=== PATIENT | female | born 1945 | race American Indian/Alaskan Native ===

== ENCOUNTER 2020-01-06 09:06 | Outpatient (CLI) | payer MEDICARE ==
--- NOTE | 2020-01-06 11:16 | Ultrasound Report ---
LEFT DIGITAL DIAGNOSTIC MAMMOGRAM WITH CAD 01/06/2020 LEFT COMPLETE BREAST ULTRASOUND INDICATION: Bloody nipple discharge for 9 months. TECHNIQUE: Digital left mammographic imaging was performed. Magnification views were obtained. Compl ete ultrasound of all four (4) quadrants was performed. This examination was interpreted with the kaila efit of Computer-Aided Detection (CAD) analysis. COMPARISON: 07/26/2015 bilateral mammogram FINDINGS: Breast Density: The breast is heterogeneously dense, which may obscure small masses. MAMMOGRAPHIC FINDINGS: A prominent retroareolar duct persists on spot magnification views. There are a few punctate calcifications associated with the duct. No distinct mass or architectural distortion identified. ULTRASOUND FINDINGS: Complete sonographic evaluation of all 4 quadrants and retroareolar region was p erformed. Ultrasound of the left breast demonstrated an irregular solid heterogeneous hypoechoic ma ss at 2:30 o'clock 5 cm from the nipple measuring 10 x 9 x 5 mm. Ultrasound also demonstrated promine nt retroareolar duct ectasia at 2:30 o'clock with an intraductal mass measuring 10 x 3 x 3 mm. This d uct correlates with the prominent duct on the mammogram. Additional mild duct ectasia with no intradu ctal mass identified at 1:00 4 cm from the nipple and at 1:00 at the edge of the areola. IMPRESSION: A suspicious 10 mm left breast mass at 2:30 o'clock 5 cm from the nipple and suspicious d uct ectasia with an intraductal mass at 2:30 o'clock retroareolar. Recommend ultrasound-guided needle biopsies at both sites with vacuum assisted biopsy for the intraductal mass. Follow up recommendation: Biopsy BI-RADS Category 4: Suspicious for Malignancy. A "normal" or negative report should not discourage follow up or biopsy of a clinically significant f inding. A written summary of these findings will be mailed to the patient. The patient will be entered into a mammography reporting system which will generate a reminder letter for the patient's next appointmen t at the appropriate interval. According to the [employer], yearly mammograms are recommended starting at age 40 and continuing as long as a woman is in good health. Breast MRI is recommended for women with an adair roximately 20-25% or greater lifetime risk of breast cancer, including women with a strong family his tory of breast or ovarian cancer and women who have been treated for Hodgkin's disease. Signer Name: Cresencio Banegas MD Signed: 01/06/2020 11:12 AM Workstation Name: [id number]
--- NOTE | 2020-01-06 15:41 | Mammography Report ---
DIGITAL DIAGNOSTIC MAMMOGRAM WITH CAD, 01/06/2020 INDICATION: Immediately after 2 site ultrasound-guided needle biopsy. TECHNIQUE: Digital left mammographic imaging was performed. This examination was interpreted with minna malhotra benefit of Computer-aided Detection analysis. COMPARISON: A same-day left diagnostic mammogram and left breast ultrasound. FINDINGS: Breast Density: The breast is heterogeneously dense, which may obscure small masses. Biopsy clips are identified at 2:30 and 3:00 and correlate with 2 biopsy sites. The clips are approxi mately 3.5 cm apart on the CC view. IMPRESSION: Concordant clip placement at 2 sites. Follow up recommendation: No recall. Post biopsy imaging. A "normal" or negative report should not discourage follow up or biopsy of a clinically significant f inding. A written summary of these findings will be mailed to the patient. The patient will be entered into a mammography reporting system which will generate a reminder letter for the patient's next appointmen t at the appropriate interval. According to the [employer], yearly mammograms are recommended starting at age 40 and continuing as long as a woman is in good health. Breast MRI is recommended for women with an appr oximately 20-25% or greater lifetime risk of breast cancer, including women with a strong family hist ory of breast or ovarian cancer and women who have been treated for Hodgkin's disease. Signer Name: Cresencio Banegas MD Signed: 01/06/2020 3:37 PM Workstation Name: [id number]
--- NOTE | 2020-01-06 15:55 | Ultrasound Report ---
ULTRASOUND-GUIDED NEEDLE CORE BIOPSY LEFT BREAST WITH CLIP PLACEMENT AND ULTRASOUND-GUIDED VACUUM-ASS ISTED NEEDLE CORE BIOPSY LEFT BREAST WITH CLIP PLACEMENT CLINICAL: Bloody nipple discharge and 2 lesions identified on a same day ultrasound. FINDINGS: The procedure was explained to the patient and informed consent was obtained. Ultrasound demonstrated the previously identified lesions at 2:30 o'clock retroareolar and at 2:30 o' clock 5 cm from the nipple.. I marked the breast with a felt tip marker and a timeout was called. The skin was prepped with Chloro -Prep and anesthetized with 1% lidocaine sites. Attention was first given to the lesion 5 cm from the nipple. Using ultrasound guidance, 2% lidocaine with epinephrine for deep anesthesia and a 14-gauge Achieve biopsy device, needle core biopsy was pe rformed. 4 cores were obtained and placed in formalin. A hydromark clip was placed at the biopsy site . Hemostasis was achieved with minimal effort and a sterile dressing was applied. Vacuum-assisted needle core biopsy was performed through a tiny dermatotomy at 2:30 o'clock retroareo lar using ultrasound guidance, 2% lidocaine with epinephrine for deep anesthesia and a 13-gauge Mammo tome Elite biopsy device. Multiple cores were obtained and placed in formalin. A hydromark clip was d eployed at the site. The patient tolerated the procedure well and there were no apparent complication s. Hemostasis was achieved with minimal effort and a sterile dressing was applied. A post procedure mammogram demonstrated concordant clip deployment at both sites. She left the depart ment in good condition and was given instructions for wound care and follow-up. IMPRESSION: Uncomplicated ultrasound guided needle core biopsy with clip placement at 2:30 o'clock 5 cm from the nipple and uncomplicated ultrasound-guided vacuum-assisted needle core biopsy at 2:30 o'c lock retroareolar left breast. Signer Name: Cresencio Banegas MD Signed: 01/06/2020 3:51 PM Workstation Name: [id number]
--- NOTE | 2020-01-09 14:15 | Ultrasound Report ---
DIGITAL DIAGNOSTIC MAMMOGRAM WITH CAD, 01/06/2020 INDICATION: Immediately after 2 site ultrasound-guided needle biopsy. TECHNIQUE: Digital left mammographic imaging was performed. This examination was interpreted with the benefit of Computer-aided Detection analysis. COMPARISON: A same-day left diagnostic mammogram and left breast ultrasound. FINDINGS: Breast Density: The breast is heterogeneously dense, which may obscure small masses. Biopsy clips are identified at 2:30 and 3:00 and correlate with 2 biopsy sites. The clips are approxi mately 3.5 cm apart on the CC view. IMPRESSION: Concordant clip placement at 2 sites. Follow up recommendation: No recall. Post biopsy imaging. A "normal" or negative report should not discourage follow up or biopsy of a clinically significant f inding. A written summary of these findings will be mailed to the patient. The patient will be entered into a mammography reporting system which will generate a reminder letter for the patient's next appointmen t at the appropriate interval. According to the [employer], yearly mammograms are recommended starting at age 40 and continuing as long as a woman is in good health. Breast MRI is recommended for women with an adair roximately 20-25% or greater lifetime risk of breast cancer, including women with a strong family his tory of breast or ovarian cancer and women who have been treated for Hodgkin's disease. Signer Name: Cresencio Banegas MD Signed: 01/06/2020 3:30 PM Workstation Name: [id number]
== END 2020-01-06 09:07 | disposition home or self-care (01) ==
LOC: SPVWC 09:06
PROVIDERS: ATTEND Surgery
DX: N64.52 Nipple discharge (principal); D05.12 Intraductal carcinoma in situ of left breast
CPT/HCPCS: 88305; 88341; 88342; 88361

== ENCOUNTER 2020-01-28 10:41 | Outpatient (CLI) | payer MEDICARE ==
--- NOTE | 2020-01-28 15:59 | Magnetic Resonance Report ---
BILATERAL BREAST MR WITHOUT AND WITH GADOLINIUM INDICATION: Newly diagnosed left breast cancer at 2 sites. History of bloody nipple discharge for 8 months. She had ultrasound-guided needle biopsies performed at 2:30 o'clock 5 cm from the nipple and at 2:30 o'clock retroareolar on 01/06/2020. Pathology: DCIS and LCIS at 2:30 o'clock 5 cm from the nip ple and invasive carcinoma NOS at 2:30 o'clock retroareolar. COMPARISONS: 01/06/2020 left breast ultrasound and left post biopsy mammogram TECHNIQUE: Axial 1.0 mm T1 without, axial high-resolution 2.0 mm T2 and axial 1.0 mm dynamic vibrant high-resolution postcontrast T1 fat saturation sequences on a 1.5 Radha magnet. The examination was p erformed with an 8-channel dedicated [place] breast coil. Post-processing with CAD and subtraction was performed on an [employer] workstation. 20 cc of MultiHance was injected without incident for the con trast portion of the exam. Consent was obtained prior to the administration of the contrast. FINDINGS: RIGHT BREAST: Mild background recommend enhancement. No mass or suspicious enhancement. No suspicious lymph nodes. LEFT BREAST: Mild background parenchymal enhancement. Regional clumped non mass enhancement involves the central left breast and measures approximately 8.1 cm AP dimension by 2.2 cm transverse dimension by 4.8 cm craniocaudal caudal dimension. A relatively central hydromark clip is identified at the me dial margin of the non mass enhancement approximately 4.5 cm from the nipple and it correlates with a biopsy site 2 or site B in the path report. A second biopsy clip is identified slightly lateral to t he nipple and approximately 6 cm from the nipple. This clip correlates with a biopsy site 2 or site A in the path report. An irregular minimally enhancing mass is associated with this clip and it measur es 2.4 x 2.1 cm. The original mass at this site measured 10 x 9 x 5 mm by ultrasound. No other mass o r suspicious enhancement. There is prominent T1 hyperintense signal within a duct extends to an orifi ce at the nipple. No suspicious left axillary or left internal mammary lymph nodes. IMPRESSION: 1. Multicentric left breast cancer with regional non mass enhancement of the left breast identified i n the vicinity of the 2 known cancers and measuring 8.1 x 2.2 x 4.8 cm. 2. Negative right breast. 3. No suspicious lymph nodes. BI-RADS Category 6: Known Cancer A normal MRI does not exclude the presence of some forms of breast malignancy as literature reports s uggest that some forms of ductal carcinoma in situ or lobular carcinoma, particularly, may not be det ected on MRI. The sensitivity and specificity of MRI for cancers under 5 mm may be reduced. MRI does not replace the recommendation for annual conventional mammographic evaluation and should be used as an adjunct to mammography and physical examination as necessary. Signer Name: Cresencio Banegas MD Signed: 01/28/2020 3:54 PM Workstation Name: [id number]
== END 2020-01-28 10:42 | disposition home or self-care (01) ==
LOC: SPVIMAG 10:41
PROVIDERS: ATTEND Surgery
DX: C50.912 Malignant neoplasm of unspecified site of left female breast (principal)
CPT/HCPCS: 36415; 82565; 84520; A9577; C8908; 77049

== ENCOUNTER 2020-04-01 09:08 | Observation (INO) | payer MEDICARE ==
[2020-04-01] MEDS: LACTATED RINGERS 1,000 ML IV SCH ×2 (08:45→21:42)
[~2020-04-01 09:08] MED LIST: LACTATED RINGERS 1,000 ML ONE; ceFAZolin/Water 2 GM/20 ML 2 GM/20 ML SYRINGE IV NR
[2020-04-01] MEDS ORDERED: SODIUM CHLORIDE 0.9% 1000 ML 1,000 ML ONE (10:43)
[2020-04-01] MEDS ORDERED: BACITRACIN 50,000 UNIT VIAL ONE (10:44)
[2020-04-01] MEDS ORDERED: METHYLENE BLUE 50 MG/10 ML AMP ONE (10:44)
[2020-04-01] MEDS ORDERED: ceFAZolin 1 GM VIAL ONE ×2 (10:44→16:59)
[2020-04-01] MEDS ORDERED: GENTAMICIN 40 MG/ML VIAL 2 ML ONE (10:45)
[2020-04-01] MEDS ORDERED: SODIUM CHLORIDE P/F VIAL 10 ML 20 ML ONE (10:45)
--- NOTE | 2020-04-01 11:16 | Anesthesia Day of Surgery ---
Anesthesia Day of Surgery - Day of Surgery Patient Examined: Yes Patient H&P Reviewed: Yes Patient is NPO: Yes Cardiac Clearance: Yes
--- NOTE | 2020-04-01 11:18 | Anesthesia Consultation ---
Anesthesia Consult and Med Hx Date of service: 04/01/20 - Airway Anesthetic Teeth Evaluation: Chipped ROM Head & Neck: Adequate Mental/Hyoid Distance: Adequate Mallampati Class: Class II Intubation Access Assessment: Good - Pre-Operative Health Status ASA Pre-Surgery Classification: ASA3 Proposed Anesthetic Plan: General Nerve Block: PEC - Pulmonary Hx Smoking: No Hx Sleep Apnea: Yes - Cardiovascular System Hx Hypertension: Yes (1999) Hx Coronary Artery Disease: No (Cath 2017. +Cardiac clearance. +2FS) Hx Peripheral Vascular Disease: (PT UNSURE) - Central Nervous System Hx Back Pain: Yes (LLE diabetic neuropathy) - Endocrine Hx Renal Disease: Yes (CRI) Hx Non-Insulin Dependent Diabetes: Yes - Hematic Hx Anemia: No - Other Systems Hx Cancer: Yes
[2020-04-01] MEDS ORDERED: ONDANSETRON 4 MG/2 ML INJ IV PRN ×2 (11:19→17:34)
[2020-04-01] MEDS ORDERED: ACETAMINOPHEN 325 MG TAB PO NR (11:19)
[2020-04-01] MEDS ORDERED: HYDROmorphone 1 MG/1 ML INJ IV PRN (11:19)
[2020-04-01] MEDS ORDERED: fentaNYL 100 MCG/2 ML INJ IV NR (11:19)
[2020-04-01] MEDS ORDERED: MAGNESIUM OXIDE 400 MG TAB PO NR (11:19)
[2020-04-01] MEDS ORDERED: BUPIVACAINE-EPINEPHRINE/PF 0.25%-1:200,000 (30 ML) VIAL INFILTRATI ONE (11:24)
[2020-04-01] MEDS ORDERED: CELECOXIB 200 MG CAP ONE (11:27)
[2020-04-01] MEDS ORDERED: ACETAMINOPHEN 325 MG TAB ONE (11:28)
[2020-04-01] MEDS ORDERED: MIDAZOLAM 2 MG/2 ML INJ ONE (11:28)
[2020-04-01] MEDS ORDERED: MAGNESIUM OXIDE 400 MG TAB PO ONE (11:28)
[2020-04-01] MEDS ORDERED: fentaNYL 100 MCG/2 ML INJ ONE ×2 (11:29→12:02)
[2020-04-01] MEDS ORDERED: CELECOXIB 200 MG CAP PO NR (12:00)
[2020-04-01] MEDS ORDERED: MIDAZOLAM 2 MG/2 ML INJ IV NR (12:00)
[2020-04-01] MEDS ORDERED: LIDOCAINE MPF (2%) 20 MG/1 ML VIAL 5 ML ONE (12:01)
[2020-04-01] MEDS ORDERED: ONDANSETRON 4 MG/2 ML INJ ONE (12:01)
[2020-04-01] MEDS ORDERED: ROCURONIUM 50 MG/5 ML INJ IV ONE (12:01)
[2020-04-01] MEDS ORDERED: NEOSTIGMINE 10MG/10 ML INJ MDV ONE ×4 (12:01→17:00)
[2020-04-01] MEDS ORDERED: SUCCINYLCHOLINE CHLORIDE 200 MG/10 ML INJ MDV ONE (12:01)
[2020-04-01] MEDS ORDERED: PHENYLEPHRINE/NS 1,000 MCG/10 ML SYRINGE (OR USE) IV ONE (12:01)
[2020-04-01] MEDS ORDERED: GLYCOPYRROLATE 0.4 MG/2 ML INJ ONE (12:01)
[2020-04-01] MEDS ORDERED: HYDROmorphone 1 MG/1 ML INJ ONE (12:01)
[2020-04-01] MEDS ORDERED: propofoL 200 MG/20 ML VIAL IV ONE (12:02)
[2020-04-01] MEDS ORDERED: SODIUM CHLORIDE 0.9% P/F 10 ML VIAL IV ONE (13:02)
[2020-04-01] MEDS ORDERED: METHYLENE BLUE 50 MG/10 ML AMP IRRIGATION ONE (13:03)
[2020-04-01] MEDS ORDERED: WATER FOR IRRIG STERILE 1,500 ML BOTTLE IR ONE (13:04)
[2020-04-01] MEDS ORDERED: SODIUM CHLORIDE P/F VIAL 10 ML 10 ML ONE (13:50)
[2020-04-01] MEDS ORDERED: ceFAZolin 1 GM VIAL IR ONE (16:20)
[2020-04-01] MEDS ORDERED: GENTAMICIN 40 MG/ML VIAL 2 ML IV ONE (16:21)
[2020-04-01] MEDS ORDERED: BACITRACIN 50,000 UNIT VIAL IR ONE (16:21)
--- NOTE | 2020-04-01 16:51 | Operative Report ---
Operative Report Operative Report: Date of Service: April 01, 2020 Preoperative diagnosis: Left Multicentric breast cancer Postoperative diagnosis: Same Procedure: Left total mastectomy with sentinel lymph node biopsy Surgeon: Antonette Hoskins M.D. Billet Sawyer: Paul Mckay M.D. Anesthesia: General Findings: Left breast 2 clips present within left total mastectomy. 2 sentinel lymph nodes identified and negative for malignancy on frozen section of pathology Complications: None Drains: As per Plastic Surgeon Estimated blood loss: 25 cc Disposition: Case handed over to Plastic Surgeon Dr. Park Indications for operative procedure: 75-year-old lady with radiologic multicentric left breast cancer, IDC and DCIS and LCIS, ER/WA positive, HER2 negative. After discussion of the multicentricity of her cancer, patient wished to proceed with total mastectomy with sentinel lymph node biopsy, possible axillary lymph node dissection, with immediate reconstruction by plastic surgery. She understands the role of possible adjuvant chemotherapy and radiation therapy post mastectomy. She has met with medical oncology as well. She wished to proceed with the above procedure. Procedure in detail: Anesthesia placed left pectoral muscle block prior to going to the operating room. The patient was taken to the operating room and placed supine on the operating table. General anesthesia was administered. The left nipple areola complex was injected with radioisotope and 1.5 cc to 1 cc mix of methylene blue and normal saline, respectively. Bilateral breast and axilla were prepped and draped in the normal sterile operative fashion. Timeout was performed. Attention was first paid to the left axilla. A gamma probe scanned the axilla with area of hotspot identified. A skin crease incision was marked over the axilla overlying the area with the highest gamma probe count. The skin incision was made with a 15 blade knife and dissection taken down to the subcutaneous tissues. The axillary fascia in the axilla was opened and the gamma probe was inserted into the axilla, 2 sentinel lymph nodes were identified with the gamma probe. SLNs were dissected free from surrounding tissue and sent for frozen section to pathology. No further gamma probe counts noted in the axilla. Lymph nodes were sent to pathology with findings negative for malignancy noted on frozen section. All returned as negative. Attention was then turned to the left breast. An elliptical mastectomy incision was marked and made, with incision encompassing the known areas of cancer and biopsy tracts. First began raising of the superior flap to the level of the clavicle superiorly and posteriorly to the pectoralis muscle. Followed by raising of the medial flap to the level of the sternum and posteriorly to the pectoralis muscle. Followed by raising of the lateral flap to the level of the latissimus dorsi muscle and taken down posteriorly. Then proceeded with raising of the inferior flap to the level of the inframammary fold taken posteriorly to the pectoralis muscle. The left breast was removed from the pectoralis muscle without incident. The specimen was appropriately marked with short stitch representing superior and long lateral and sent to radiology for x-ray where the biopsy clips were noted to be present. The specimen was then submitted to pathology. The chest wall was irrigated and dried. Hemostasis was obtained. At this point the procedure was turned over to Plastic Surgeon, Dr. Park, in stable condition for immediate reconstruction. Patient tolerated the procedure well.
[2020-04-01] MEDS ORDERED: LACTATED RINGERS 1,000 ML ONE (17:05)
[2020-04-01] MEDS ORDERED: ACETAMINOPHEN 325 MG TAB PO PRN (17:34)
[2020-04-01] MEDS ORDERED: diphenhydrAMINE 25 MG CAP PO PRN (17:34)
[2020-04-01] MEDS ORDERED: METOCLOPRAMIDE 10 MG TAB PO PRN (17:34)
--- NOTE | 2020-04-01 17:34 | Operative Report ---
Operative Report Operative Report: Plastic Surgery Operative Note Surgeon: Yesika Park MD Demand Manager: None Preoperative Diagnosis: Acquired absence of the left breast and nipple; Malignant neoplasm of the left breast Postoperative Diagnosis: Same Procedure: Right breast reconstruction with tissue overhead crane truck loader placement and FlexHD acellular dermal matrix. Anesthesia: General EBL: Minimal Indications: This patient is a 75 year old AAF who is scheduled for a left mastectomy and desired reconstruction. We discussed her options including autologous tissue transfer and she was interested in the least complex reconstructive route possible. So we planned for tissue overhead crane truck loader placement with the use of acellular dermal matrix. The benefits as well as the risks of the procedure were discussed with the patient, including but not limited to infection, bleeding, hematoma, seroma, wound dehiscence, implant rupture, need for further surgery including planned stages and additional reconstruction. The patient understands and accepts these risks and desires to proceed with surgery. Procedure: After review of pertinent history and physical exam findings the patient was brought into the operating room and placed supine on the OR table. After induction of adequate general anesthesia the entire chest was prepped and draped in the usual sterile surgical fashion. To begin, Dr. Antonette Hoskins performed the right mastectomy and SLN biopsy and this procedure is dictated under a separate operative note. When this was completed, the breast reconstruction was started on the right breast. Using electrocautery we dissected a submuscular pocket behind pectoralis muscle to accommodate the tissue overhead crane truck loader. The pocket was thoroughly irrigated with triple antibiotic solution and we began re-creating the inframammary border using Flex HD perforated contoured, a total size of 9x15cm, SN .[id number] . The inferior aspect of the Flex HD was secured to the chest fascia using 2-0 PDS suture. This was followed by placement of the tissue overhead crane truck loader, [place] Siltex 550cc (SN [id number]), in the submuscular pocket. Following this inferior border of the pectoralis fascia was secured to the superior border of the FlexHD also using 2- 0 PDS suture. 15 Polish Pepe drain was placed in the subcutaneous space and both were secured using 2-0 Nylon suture. Using the magnet finder from the tissue overhead crane truck loader package, the injection port was identified and 300cc of methylene blue-tinged injectable saline was added to the implant. We then began a 3-layered closure using 2-0 Monocryl and 3-0 Monoderm Quill [id number] suture. This was followed by Dermabond glue and then Telfa with tegaderm with the same dressing applied to her axillary incision, followed by bra binder. Patient was then awakened from general anesthesia and transferred to the recovery room instable condition. All sponge, needle and instrument counts were correct at the end of the case.
[2020-04-01] MEDS ORDERED: IBUPROFEN 800 MG TAB PO PRN (17:41)
[2020-04-01] MEDS ORDERED: methOCARBAMOL 1,000 MG in SODIUM CHLORIDE 0.9% 250ML 250 ML IV STA (17:51)
[2020-04-01] MEDS ORDERED: LACTATED RINGERS 1,000 ML IV SCH (18:00)
--- NOTE | 2020-04-01 21:43 | Post Anesthesia Evaluation ---
- Post Anesthesia Evaluation Patient Participated: Yes Airway Patent: Yes Stable Respiratory Function: Yes Nausea/Vomiting: No Temp > 96.8F: Yes Pain Manageable: Yes Adequeate Hydration: Yes Anesthesia Complications: No Block Receding Appropriately: Not Applicable Patient on Ventilator: No
[2020-04-01] MEDS: DOCUSATE SODIUM 100 MG CAP PO SCH (22:02)
[2020-04-02] MEDS: oxyCODONE /ACETAMINOPHEN 5-325MG TAB PO PRN ×2 (01:17→08:55)
[2020-04-02] MEDS: ceFAZolin/NS 1 GM/50 ML 1 GM/50 ML BAG IV SCH ×2 (01:17→11:41)
[2020-04-02] MEDS: GABAPENTIN 300 MG CAP PO SCH ×2 (05:16→14:18)
[2020-04-02] MEDS ORDERED: glipiZIDE 10 MG TAB PO SCH (08:00)
[2020-04-02] MEDS ORDERED: LINAGLIPTIN 5 MG TAB PO SCH (08:00)
[2020-04-02] MEDS: DOCUSATE SODIUM 100 MG CAP PO SCH ×2 (08:54→09:02)
[2020-04-02] MEDS: LACTATED RINGERS 1,000 ML IV SCH (08:55)
[2020-04-02] MEDS: LOSARTAN 50 MG TAB PO SCH ×2 (08:55→09:02)
[2020-04-02] MEDS: amLODIPine 10 MG TAB PO SCH ×2 (08:55→09:02)
[2020-04-02 11:34] VITALS: BP 134/49
--- NOTE | 2020-04-02 12:24 | Progress Note ---
Subjective Date of service: 04/02/20 Interval history: Plastic Surgery Progress Note Patient is doing great. She is ambulating without assistance, eating and drinking, voiding and denies pain. She is eager to go home. AFVSS DANIEL drain in place, serosanguinous drainage, 70cc overnight Left chest dressings clean and dry, no evidence of hematoma or seroma in the chest or axillary regions. Appropriate ecchymosis. A/P: POD #1 s/p left mastectomy with SLNBx and immediate breast reconstruction with Tissue Information Engineer and Flex HD. Continue Abx until discharge. Patient has her prescription medications already filled out. DANIEL drain education prior to d/c. Ok to shower tomorrow if desired. Continuous bra binder use. Dischrage to home in the care of her daughter. Follow up with Drs. Park and Aidee on 04/08/20 as scheduled. Objective - Constitutional Vitals: Vital Signs - 12hr 04/02/20 04/02/20 04/02/20 04:50 07:19 09:55 Temperature 97.4 F L 97.3 F L Pulse Rate 58 L 67 Respiratory 18 16 20 Rate Blood Pressure 139/65 133/67 O2 Sat by Pulse 100 100 Oximetry 04/02/20 04/02/20 10:00 11:24 Temperature 98.8 F Pulse Rate Respiratory 20 Rate Blood Pressure 134/49 O2 Sat by Pulse 100 Oximetry - Labs Labs: Abnormal lab results 04/01/20 04/01/20 04/02/20 Range/Units 17:55 23:57 08:20 POC Glucose 157 H 186 H 190 H (70-105) 04/02/20 Range/Units 11:36 POC Glucose 266 H (70-105) Medications & Allergies - Medications Allergies/Adverse Reactions: Allergies No Known Allergies Allergy (Verified 03/23/20 17:33) Home Medications: Home Medications Medication Instructions Recorded Confirmed Last Taken Type Aspirin EC [Halfprin EC] 81 mg PO QDAY 03/23/20 04/01/20 03/24/20 08:00 History AtorvaSTATin [Lipitor] 40 mg PO QHS 03/23/20 04/01/20 03/31/20 20:00 History Gabapentin [Neurontin] 300 mg PO Q8HR PRN 03/23/20 04/01/20 04/01/20 05:00 History Olmesartan/Amlodipin/Hcthiazid 1 tab PO DAILY 03/23/20 04/01/20 04/01/20 05:00 History Sitagliptin Phosphate [Januvia] 100 mg PO DAILY 03/23/20 04/01/20 03/31/20 20:00 History glipiZIDE [Glucotrol] 10 mg PO QDAY 03/23/20 04/01/20 03/31/20 20:00 History Active Medications: Generic Name Dose Route Start Last Admin Trade Name Freq PRN Reason Stop Dose Admin Acetaminophen 650 mg 04/01/20 17:34 Tylenol PO Q6H PRN Pain MILD(1-3)/Fever >100.5/SRIVASTAVA Amlodipine Besylate 10 mg 04/02/20 10:00 04/02/20 09:02 Amlodipine PO Not Given QDAY FELIZ Atorvastatin Calcium 40 mg 04/01/20 22:00 04/01/20 22:03 Lipitor PO Not Given QHS FELIZ Diphenhydramine HCl 25 mg 04/01/20 17:34 Benadryl PO Q8H PRN Itching Docusate Sodium 100 mg 04/01/20 22:00 04/02/20 09:02 Colace PO Not Given BID FELIZ Gabapentin 300 mg 04/02/20 06:00 04/02/20 05:16 Gabapentin PO Not Given Q8HR FELIZ Glipizide 10 mg 04/02/20 08:00 04/02/20 08:55 Glucotrol PO 10 mg QDDIAB FELIZ Administration Lactated Ringer's 1,000 mls @ 100 mls/hr 04/01/20 09:00 04/02/20 08:55 Lactated Ringers IV 100 mls/hr DIRECT FELIZ Administration Lactated Ringer's 1,000 mls @ 75 mls/hr 04/01/20 18:00 Lactated Ringers IV DIRECT FELIZ Cefazolin Sodium 1 gm in 50 mls @ 100 mls/hr 04/02/20 00:00 04/02/20 11:41 Ancef/Ns 1 Gm/50 Ml IV 100 mls/hr Q8H FELIZ Administration Protocol Ibuprofen 800 mg 04/01/20 17:41 Ibuprofen PO Q8H PRN Pain, Mild (1-3) Linagliptin 5 mg 04/02/20 08:00 04/02/20 08:54 Tradjenta PO 5 mg QDDIAB FELIZ Administration Losartan Potassium 50 mg 04/02/20 10:00 04/02/20 09:02 Cozaar PO Not Given QDAY FELIZ Methocarbamol 750 mg 04/01/20 17:41 Robaxin PO Q8H PRN Muscle Spasm Metoclopramide HCl 10 mg 04/01/20 17:34 04/02/20 01:17 Reglan PO 10 mg Q6H PRN Administration Nausea And Vomiting Ondansetron HCl 4 mg 04/01/20 17:34 Zofran IV Q8H PRN N/V unrelieved by Reglan Oxycodone/Acetaminophen 1 tab 04/01/20 17:34 04/02/20 08:55 Percocet 5/325 PO 1 tab Q6H PRN Administration Pain, Moderate (4-6)
--- NOTE | 2020-04-02 17:05 | XRay Report ---
LEFT BREAST SPECIMEN RADIOGRAPH INDICATION: Left breast cancer. COMPARISON: Breast MRI from 01/28/2020. Diagnostic left mammogram from 01/06/2020. TECHNIQUE / FINDINGS: The previously placed biopsy clips are present in the submitted specimen. No significant abnormality is identified in the specimen. The previously reported left breast cancer adjacent to these clips is likely present in the specimen. However, correlation with the pathology report is recommended. IMPRESSION: Radiographic evidence of adequate excision of the targeted left breast cancer. Please correlate with the pathology report. Signer Name: Kyler Harrell MD Signed: 04/02/2020 5:00 PM Workstation Name: [id number]
== END 2020-04-02 15:10 | disposition home or self-care (01) ==
LOC: OR 09:08 → 3B-SURG 17:34
PROVIDERS: ADMIT Surgery; ATTEND Surgery
DX: Z03.818 Encounter for observation for suspected exposure to other biological agents ruled out (principal); C50.412 Malignant neoplasm of upper-outer quadrant of left female breast
CPT/HCPCS: 19307; 19357; 38525; 38792; 64450; 76098; 78800; 82962; 88307; 88331; 88342; 94660; 96365; 96366; 96367; 96375; A9270; A9541; C1789; G0378; J0330; J0690; J1170; J1580; J2250; J2405; J2704; J2710; J2800; J3010; J7030; J7050; J7120; Q4128; Q9968; U0003; 88305; 88309; 88333; J2370

== ENCOUNTER 2020-07-08 10:18 | Outpatient (CLI) | payer MEDICARE ==
--- NOTE | 2020-07-08 11:29 | Mammography Report ---
DEXA BONE DENSITY SCAN INDICATION: BREAST CANCER. COMPARISON: DEXA scan from 07/26/2015 LUMBAR SPINE (L1-L4): Bone mineral density (BMD) is 1.341 g/cm2. T-score is 1.7 (standard deviations of Young Adult mean). Z-score is 4.3 (standard deviations of Age Matched mean). There has been a 4% increase in bone mineral density in this region since 2015. LEFT FEMORAL NECK: Bone mineral density (BMD) is 0.969 g/cm2. T-score is 0.1 (standard deviations of Young Adult mean). Z-score is 1.7 (standard deviations of Age Matched mean). There has been a 11.5 % decrease in bone mineral density in this region since 2014 IMPRESSION: 1. WHO Classification: Normal bone density. Fracture Risk: Not Increased. Please note that although t he exam is normal, there has been a significant interval decrease in bone mineral density in the left femoral neck since 2014. Signer Name: Vin Rivero MD Signed: 07/08/2020 11:25 AM Workstation Name: [id number]
== END 2020-07-08 10:19 | disposition home or self-care (01) ==
LOC: SPVWC 10:18
PROVIDERS: ATTEND Internal Medicine Hematology & Oncology
DX: D05.90 Unspecified type of carcinoma in situ of unspecified breast (principal); Z79.811 Long term (current) use of aromatase inhibitors
CPT/HCPCS: 77080